=== PATIENT | male | born 1960 | race Caucasian/White ===

== ENCOUNTER 2017-01-27 20:31 | Emergency (ER) | payer OTHER ==
[2017-01-27 20:41] VITALS: RESP 18; TEMP 97.7
[2017-01-27] MEDS ORDERED: CLINDAMYCIN 150 MG CAP PO ONE (21:13)
--- NOTE | 2017-01-27 21:17 | EDPHY ---
H & P Stated Complaint: toe discoloration today hx dm Time Seen by Provider: 01/27/17 21:03 HPI/ROS: CHIEF COMPLAINT: Right 3rd toe bruising HISTORY OF PRESENT ILLNESS: The patient is a 48-year-old diabetic man with peripheral neuropathy comes to the emergency department concerned about his right 3rd toe. It is slightly discolored at the tip. He does not remember any trauma. It is not been warm. He has not had a fever. His sugars have been right around 100 for the last 3 weeks. He is concerned because his sister had to have a toe amputation. He 1st noticed the discoloration this afternoon. It is not worsened since that time. REVIEW OF SYSTEMS: Constitutional: denies: chills, fever, recent illness, recent injury EENTM: denies: blurred vision, double vision, nose congestion Respiratory: denies: cough, shortness of breath Cardiac: denies: chest pain, irregular heart rate, lightheadedness, palpitations Gastrointestinal/Abdominal: denies: abdominal pain, diarrhea, nausea, vomiting, blood streaked stools Genitourinary: denies: dysuria, frequency, hematuria, pain Musculoskeletal: See HPI Skin: See HPI Neurological: denies: headache, numbness, paresthesia, tingling, dizziness, weakness Hematologic/Lymphatic: denies: blood clots, easy bleeding, easy bruising Immunologic/allergic: denies: HIV/AIDS, transplant EXAM: GENERAL: Well-appearing, well-nourished and in no acute distress. HEAD: Atraumatic, normocephalic. EYES: Pupils equal round and reactive to light, extraocular movements intact, sclera anicteric, conjunctiva are normal. ENT: TMs normal, nares patent, oropharynx clear without exudates. Moist mucous membranes. NECK: Normal range of motion, supple without lymphadenopathy or JVD. LUNGS: Breath sounds clear to auscultation bilaterally and equal. No wheezes rales or rhonchi. HEART: Regular rate and rhythm without murmurs, rubs or gallops. ABDOMEN: Soft, nontender, normoactive bowel sounds. No guarding, no rebound. No masses appreciated. BACK: No CVA tenderness, no spinal tenderness, step-offs or deformities EXTREMITIES: Slightly purplish dorsal aspect of right great toe. No tenderness with movement. No swelling or erythema or warmth. No purulent drainage or fluctuance. NEUROLOGICAL: Cranial nerves II through XII grossly intact. Normal speech, normal gait. 5/5 strength, normal movement in all extremities, normal sensation PSYCH: Normal mood, normal affect. SKIN: See above, no lacerations or ulcerations. Source: Patient - Personal History Current Tetanus/Diphtheria Vaccine: Yes Current Tetanus Diphtheria and Acellular Pertussis (TDAP): Yes - Medical/Surgical History Hx Asthma: No Hx Chronic Respiratory Disease: No Hx Diabetes: Yes Hx Cardiac Disease: Yes Hx Renal Disease: No Hx Cirrhosis: No Hx Alcoholism: No Hx HIV/AIDS: No Hx Splenectomy or Spleen Trauma: No - Family History Significant Family History: No pertinent family hx - Social History Smoking Status: Never smoked Alcohol Use: Sober Drug Use: None Constitutional: Initial Vital Signs Temperature (C) 36.5 C 01/27/17 20:36 Heart Rate 72 01/27/17 20:36 Respiratory Rate 18 01/27/17 20:36 Blood Pressure 126/83 H 01/27/17 20:36 O2 Sat (%) 96 01/27/17 20:36 O2 Delivery Mode Room Air Allergies/Adverse Reactions: No Known Allergies Allergy (Unverified 01/27/17 20:35) Home Medications: Medication Instructions Recorded Clindamycin HCl [Clindamycin] 300 mg PO TID #30 cap 01/27/17 GLIPIZIDE 01/27/17 Metformin HCl [Metformin 1000 mg] 01/27/17 Synthroid 01/27/17 Victoza 3-Adrian 01/27/17 Medical Decision Making ED Course/Re-evaluation: The patient has what appears to be a bruise on the dorsal aspect of his right toe. It does not really show signs of infection. He does not remember injuring it. It does not have pain with movement or axial loading. He declines x-ray imaging. He is concerned about infection. This may be a very early infection. I will start him on clindamycin. I gave him strict return precautions. Differential Diagnosis: Partial list of the Differential diagnosis considered include but were not limited to; neuropathy, contusion, infection and although unlikely based on the history and physical exam, I also considered osteomyelitis, sepsis, cellulitis. I discussed these differential diagnoses and the plan with the patient as well as the usual and expected course. The patient understands that the diagnosis is provisional and that in medicine we are not always correct and that further workup is often warranted. Usual and customary warnings were given. All of the patient's questions were answered. The patient was instructed to return to the emergency department should the symptoms at all worsen or return, otherwise to followup with the physician as we discussed. - Data Points Medications Given: Discontinued Medications Clindamycin (Clindamycin) 150 mg PO EDNOW ONE PRN Reason: Protocol Stop: 01/27/17 21:14 Last Admin: 01/27/17 21:22 Dose: 150 mg Departure - Departure Disposition: Home, Routine, Self-Care Clinical Impression: Contusion of third toe, right Qualifiers: Encounter type: initial encounter Qualified Code(s): S90.121A - Contusion of right lesser toe(s) without damage to nail, initial encounter Condition: Fair Instructions: Foot Care for People with Diabetes (ED) Referrals: Maddie Willingham MD [Primary Care Provider] - 1-2 days without fail Prescriptions: Clindamycin HCl [Clindamycin] 300 mg PO TID #30 cap
[2017-01-27 21:26] VITALS: BP 133/81; PULSE 68; O2SAT 95
== END 2017-01-27 21:27 | disposition home or self-care (01) ==
DX: M79.81 Nontraumatic hematoma of soft tissue (principal); E11.9 Type 2 diabetes mellitus without complications; Z79.84 Long term (current) use of oral hypoglycemic drugs